=== PATIENT | female | born 1960 | race Caucasian/White ===

== ENCOUNTER 2018-08-03 23:17 | Inpatient (IN) | payer MEDICARE, OTHER ==
[2018-08-04 00:14] LABS: ADD MAN DIFF? NO
[2018-08-04 00:17] LABS: WHITE BLOOD COUNT 6.1 10^3/ul (4.8-10.8)
[2018-08-04 00:17] LABS: BASOPHIL # 0.1 10^3/ul (0.0-0.1); EOSINOPHILS # 0.2 10^3/ul (0.0-0.5); EOSINOPHILS % 2.9 % (0.0-7.0); HEMATOCRIT 42.5 % (37.0-47.0); HEMOGLOBIN 13.7 g/dl (12.0-16.0); LYMPHOCYTES # 2.3 10^3/ul (0.8-2.9); LYMPHOCYTES % 37.1 % (15.0-51.0); MEAN CORPUSCULAR HEMOGLOBIN 31.4 pg (29.0-33.0); MEAN CORPUSCULAR HGB CONC 32.2 g/dl (32.0-37.0); MEAN CORPUSCULAR VOLUME 97.3 fl (82.0-101.0); MEAN PLATELET VOLUME 11.5 fl (7.4-10.4); MONOCYTE # 0.6 10^3/ul (0.3-0.9); MONOCYTES % 9.8 % (0.0-11.0); PLATELET COUNT 219 10^3/UL (140-415); RED BLOOD COUNT 4.37 10^6/ul (4.20-5.40)
[2018-08-04 00:23] LABS: ALANINE AMINOTRANSFERASE 57 IU/L (13-69); ALBUMIN 4.6 g/dl (3.3-4.9); ALBUMIN/GLOBULIN RATIO 1.53; ALKALINE PHOSPHATASE 97 IU/L (42-121); ANION GAP 9 (5-13); ASPARTATE AMINO TRANSFERASE 40 IU/L (15-46); BILIRUBIN,INDIRECT 0.3 mg/dl (0-1.1); BILIRUBIN,TOTAL 0.3 mg/dl (0.2-1.3); BLOOD UREA NITROGEN 24 mg/dl (7-20); CALCIUM 10.2 mg/dl (8.4-10.2); CARBON DIOXIDE 30 mmol/L (21-31); CHLORIDE 103 mmol/L (97-110); CREATININE 0.59 mg/dl (0.44-1.00); Estimated GFR > 60 mL/min (>60); GLUCOSE 125 mg/dl (70-220); POTASSIUM 4.2 mmol/L (3.5-5.1); SODIUM 142 mmol/L (135-144); TOTAL PROTEIN 7.6 g/dl (6.1-8.1)
[2018-08-04 00:35] LABS: B-TYPE NATRIURETIC PEPTIDE 33 PG/ML (0-125); TROPONIN-I < 0.012 ng/ml (0.000-0.120)
[2018-08-04] MEDS: LEVETIRACETAM 1000 MG (PMX) 100 ML IVPB (02:11)
[2018-08-04] MEDS ORDERED: LORAZEPAM 2 MG INJ IV (11:30)
[2018-08-04] MEDS ORDERED: ACETAMINOPHEN 325 MG TAB PO (11:30)
[2018-08-04] MEDS ORDERED: NON-FORMULARY/PATIENT OWN MED (Mirabegron (Myrbetriq) 50 MG) PO (12:30)
[2018-08-04] MEDS: GABAPENTIN 300 MG CAP PO ×3 (13:14→20:24)
[2018-08-04] MEDS: SOLIFENACIN 5 MG TAB PO (13:14)
[2018-08-04] MEDS: FOLIC ACID 1 MG TAB PO (13:27)
[2018-08-04] MEDS ORDERED: DESMOPRESSIN 0.1 MG TAB PO (14:00)
[2018-08-04] MEDS: [UNRECOGNIZED DRUG - OTHER] XX (17:00)
[2018-08-04] MEDS: MIRABEGRON 50 MG XX (17:00)
[2018-08-04] MEDS: BACLOFEN 10 MG TAB PO (20:24)
[2018-08-04] MEDS ORDERED: PATIENT'S OWN MEDICATION PO (21:00)
[2018-08-04] MEDS ORDERED: LEVETIRACETAM 500 MG (PMX) 100 ML IVPB (21:00)
[2018-08-04] MEDS: DESMOPRESSIN 0.1 MG TAB PO (21:36)
[2018-08-05] MEDS: MIRABEGRON 50 MG XX ×2 (01:00→09:00)
[2018-08-05] MEDS: [UNRECOGNIZED DRUG - OTHER] XX ×2 (01:00→09:00)
[2018-08-05 06:43] LABS: ADD MAN DIFF? NO
[2018-08-05 07:30] LABS: ANION GAP 7 (5-13); BLOOD UREA NITROGEN 23 mg/dl (7-20); CALCIUM 9.7 mg/dl (8.4-10.2); CARBON DIOXIDE 26 mmol/L (21-31); CHLORIDE 107 mmol/L (97-110); CREATININE 0.51 mg/dl (0.44-1.00); Estimated GFR > 60 mL/min (>60); GLUCOSE 92 mg/dl (70-220); POTASSIUM 4.8 mmol/L (3.5-5.1); SODIUM 140 mmol/L (135-144)
[2018-08-05 07:51] LABS: WHITE BLOOD COUNT 6.2 10^3/ul (4.8-10.8)
[2018-08-05 07:51] LABS: BASOPHIL # 0.1 10^3/ul (0.0-0.1); EOSINOPHILS # 0.2 10^3/ul (0.0-0.5); EOSINOPHILS % 2.8 % (0.0-7.0); HEMATOCRIT 40.9 % (37.0-47.0); HEMOGLOBIN 13.4 g/dl (12.0-16.0); LYMPHOCYTES # 1.6 10^3/ul (0.8-2.9); LYMPHOCYTES % 26.5 % (15.0-51.0); MEAN CORPUSCULAR HEMOGLOBIN 31.8 pg (29.0-33.0); MEAN CORPUSCULAR HGB CONC 32.8 g/dl (32.0-37.0); MEAN CORPUSCULAR VOLUME 96.9 fl (82.0-101.0); MEAN PLATELET VOLUME 11.4 fl (7.4-10.4); MONOCYTE # 0.6 10^3/ul (0.3-0.9); MONOCYTES % 8.9 % (0.0-11.0); NEUTROPHIL # 3.8 10^3/ul (1.6-7.5); NEUTROPHILS % 60.6 % (39.0-77.0); PLATELET COUNT 200 10^3/UL (140-415); RED BLOOD COUNT 4.22 10^6/ul (4.20-5.40); RED CELL DISTRIBUTION WIDTH 12.2 % (11.5-14.5)
[2018-08-05] MEDS: SOLIFENACIN 5 MG TAB PO (09:49)
[2018-08-05] MEDS: FOLIC ACID 1 MG TAB PO (09:52)
[2018-08-05] MEDS: ASPIRIN 81 MG TAB PO (09:52)
[2018-08-05] MEDS: GABAPENTIN 300 MG CAP PO ×4 (09:52→21:22)
[2018-08-05] MEDS: BACLOFEN 10 MG TAB PO ×2 (09:52→21:14)
[2018-08-05] MEDS: ATORVASTATIN 80 MG TAB PO (21:00)
[2018-08-05] MEDS: DESMOPRESSIN 0.1 MG TAB PO (21:13)
[2018-08-05] MEDS: ASCORBIC ACID 500 MG TAB PO (21:13)
[2018-08-05] MEDS: LEVETIRACETAM 500 MG TAB PO (21:14)
[2018-08-05] MEDS: MYRBETRIQ 25 MG PO (21:15)
[2018-08-06 06:38] LABS: HDL CHOLESTEROL 52 mg/dl (37-92); LDL CHOLESTEROL,CALCULATED 98 mg/dl; TRIGLYCERIDES 54 mg/dl (0-149)
[2018-08-06 06:38] LABS: CHOLESTEROL 161 mg/dl (100-200)
[2018-08-06 07:58] LABS: ERYTHROCYTE SEDIMENTATION RATE 10 mm/Hr (0-30)
[2018-08-06] MEDS: DESMOPRESSIN 0.1 MG TAB PO (09:00)
[2018-08-06] MEDS: FOLIC ACID 1 MG TAB PO (09:28)
[2018-08-06] MEDS: BACLOFEN 10 MG TAB PO ×2 (09:28→21:43)
[2018-08-06] MEDS: ASPIRIN 81 MG TAB PO (09:28)
[2018-08-06] MEDS: SOLIFENACIN 5 MG TAB PO (09:28)
[2018-08-06] MEDS: ASCORBIC ACID 500 MG TAB PO ×2 (09:28→21:43)
[2018-08-06] MEDS: GABAPENTIN 300 MG CAP PO ×4 (09:29→21:43)
[2018-08-06] MEDS: LEVETIRACETAM 500 MG TAB PO ×2 (09:29→21:43)
[2018-08-06] MEDS: MULTIVITAMINS THERAPEUTIC TAB PO (09:29)
[2018-08-06] MEDS: DOCUSATE SODIUM 100 MG CAP PO (16:34)
[2018-08-06 17:24] LABS: RAPID PLASMA REAGIN NONREACTIVE (NR)
[2018-08-06 21:24] LABS: ADD UMIC NO; UR ASCORBIC ACID 40 mg/dL (NEGATIVE); UR BILIRUBIN (Dip) NEGATIVE (NEGATIVE); UR BLOOD (Dip) NEGATIVE (NEGATIVE); UR CLARITY CLEAR (CLEAR); UR COLOR STRAW (YELLOW); UR GLUCOSE (Dip) NEGATIVE (NEGATIVE); UR KETONES (Dip) NEGATIVE (NEGATIVE); UR LEUKOCYTE ESTERASE (Dip) NEGATIVE Leu/ul (NEGATIVE); UR NITRITE (Dip) NEGATIVE (NEGATIVE); UR SPECIFIC GRAVITY (Dip) 1.008 (1.003-1.030); UR TOTAL PROTEIN (Dip) NEGATIVE (NEGATIVE); UR UROBILINOGEN (Dip) NEGATIVE (NEGATIVE)
[2018-08-06 21:43] LABS: AMPHETAMINE/METHAMPHETAMINE Negative (NEGATIVE); BARBITURATES Negative (NEGATIVE); BENZODIAZEPINES Negative (NEGATIVE); CANNABINOIDS Negative (NEGATIVE); COCAINE Negative (NEGATIVE); OPIATES Negative (NEGATIVE)
[2018-08-06] MEDS: MYRBETRIQ 25 MG PO (21:44)
[2018-08-06] MEDS: ATORVASTATIN 80 MG TAB PO (21:47)
[2018-08-07] MEDS: SOLIFENACIN 5 MG TAB PO (09:12)
[2018-08-07] MEDS: ASCORBIC ACID 500 MG TAB PO (09:12)
[2018-08-07] MEDS: FOLIC ACID 1 MG TAB PO (09:12)
[2018-08-07] MEDS: ASPIRIN 81 MG TAB PO (09:12)
[2018-08-07] MEDS: DESMOPRESSIN 0.1 MG TAB PO (09:12)
[2018-08-07] MEDS: LEVETIRACETAM 500 MG TAB PO (09:12)
[2018-08-07] MEDS: BACLOFEN 10 MG TAB PO (09:12)
[2018-08-07] MEDS: GABAPENTIN 300 MG CAP PO ×3 (09:12→16:55)
[2018-08-07] MEDS: MULTIVITAMINS THERAPEUTIC TAB PO (09:12)
== END 2018-08-07 18:54 | DRG 101 ==
LOC: E/R 23:17 → 6WM 08-04 01:29
DX: G40.901 Epilepsy, unspecified, not intractable, with status epilepticus (principal); G81.91 Hemiplegia, unspecified affecting right dominant side; R32 Unspecified urinary incontinence; Z86.011 Personal history of benign neoplasm of the brain; Z92.3 Personal history of irradiation; Z99.3 Dependence on wheelchair
CPT/HCPCS: 36415; 70450; 70553; 71045; 80048; 80053; 80061; 80307; 81003; 82962; 83880; 84484; 85025; 85651; 86592; 93005; 93306; 95819; 97110; 97163; 97167; 97530; 99285-25

== ENCOUNTER 2018-08-07 19:07 | Inpatient (IN) | payer MEDICARE, OTHER ==
[2018-08-07] MEDS ORDERED: BISACODYL 10 MG SUPP PR (20:00)
[2018-08-07] MEDS ORDERED: ACETAMINOPHEN 325 MG TAB PO ×2 (20:00→20:47)
[2018-08-07] MEDS ORDERED: DOCUSATE SODIUM 100 MG CAP PO (20:47)
[2018-08-07] MEDS ORDERED: LORAZEPAM 2 MG INJ IV (20:47)
[2018-08-07] MEDS: SENNA TAB PO (21:00)
[2018-08-07] MEDS: LEVETIRACETAM 500 MG TAB PO (21:24)
[2018-08-07] MEDS: GABAPENTIN 300 MG CAP PO (21:24)
[2018-08-07] MEDS: BACLOFEN 10 MG TAB PO (21:24)
[2018-08-07] MEDS: ASCORBIC ACID 500 MG TAB PO (21:24)
[2018-08-07] MEDS: ATORVASTATIN 80 MG TAB PO (21:25)
[2018-08-07] MEDS: DOCUSATE SODIUM 100 MG CAP PO (21:27)
[2018-08-07] MEDS: MYRBETRIQ 25 MG PO (22:05)
[2018-08-08 02:58] LABS: ADD UMIC YES; UR ASCORBIC ACID NEGATIVE (NEGATIVE); UR BACTERIA FEW /HPF (NONE SEEN); UR BILIRUBIN (Dip) NEGATIVE (NEGATIVE); UR BLOOD (Dip) NEGATIVE (NEGATIVE); UR CLARITY CLEAR (CLEAR); UR COLOR STRAW (YELLOW); UR GLUCOSE (Dip) NEGATIVE (NEGATIVE); UR KETONES (Dip) NEGATIVE (NEGATIVE); UR LEUKOCYTE ESTERASE (Dip) TRACE Leu/ul (NEGATIVE); UR NITRITE (Dip) NEGATIVE (NEGATIVE); UR RBC 0 /HPF (0-5); UR SPECIFIC GRAVITY (Dip) 1.006 (1.003-1.030); UR TOTAL PROTEIN (Dip) NEGATIVE (NEGATIVE); UR UROBILINOGEN (Dip) NEGATIVE (NEGATIVE); UR WBC 4 /HPF (0-5)
[2018-08-08 07:19] LABS: ADD MAN DIFF? NO
[2018-08-08 07:28] LABS: BASOPHIL # 0.1 10^3/ul (0.0-0.1); BASOPHILS % 1.2 % (0.0-2.0); EOSINOPHILS # 0.2 10^3/ul (0.0-0.5); EOSINOPHILS % 4.4 % (0.0-7.0); HEMATOCRIT 43.1 % (37.0-47.0); LYMPHOCYTES # 1.7 10^3/ul (0.8-2.9); LYMPHOCYTES % 32.2 % (15.0-51.0); MEAN CORPUSCULAR HEMOGLOBIN 31.2 pg (29.0-33.0); MEAN CORPUSCULAR HGB CONC 32.5 g/dl (32.0-37.0); MEAN PLATELET VOLUME 11.7 fl (7.4-10.4); MONOCYTE # 0.4 10^3/ul (0.3-0.9); MONOCYTES % 8.4 % (0.0-11.0); NEUTROPHIL # 2.8 10^3/ul (1.6-7.5); NEUTROPHILS % 53.4 % (39.0-77.0); PLATELET COUNT 214 10^3/UL (140-415); RED BLOOD COUNT 4.49 10^6/ul (4.20-5.40); RED CELL DISTRIBUTION WIDTH 12.1 % (11.5-14.5)
[2018-08-08 07:28] LABS: WHITE BLOOD COUNT 5.2 10^3/ul (4.8-10.8)
[2018-08-08 07:45] LABS: ALANINE AMINOTRANSFERASE 48 IU/L (13-69); ALBUMIN 4.1 g/dl (3.3-4.9); ALBUMIN/GLOBULIN RATIO 1.51; ALKALINE PHOSPHATASE 79 IU/L (42-121); ANION GAP 8 (5-13); ASPARTATE AMINO TRANSFERASE 31 IU/L (15-46); BILIRUBIN,INDIRECT 0.5 mg/dl (0-1.1); BILIRUBIN,TOTAL 0.5 mg/dl (0.2-1.3); BLOOD UREA NITROGEN 19 mg/dl (7-20); CALCIUM 9.5 mg/dl (8.4-10.2); CARBON DIOXIDE 28 mmol/L (21-31); CHLORIDE 106 mmol/L (97-110); CREATININE 0.56 mg/dl (0.44-1.00); Estimated GFR > 60 mL/min (>60); GLUCOSE 93 mg/dl (70-220); SODIUM 142 mmol/L (135-144); TOTAL PROTEIN 6.8 g/dl (6.1-8.1)
[2018-08-08] MEDS: DESMOPRESSIN 0.1 MG TAB PO (10:40)
[2018-08-08] MEDS: DOCUSATE SODIUM 100 MG CAP PO ×2 (10:40→20:17)
[2018-08-08] MEDS: GABAPENTIN 300 MG CAP PO ×4 (10:40→20:17)
[2018-08-08] MEDS: FOLIC ACID 1 MG TAB PO (10:40)
[2018-08-08] MEDS: LEVETIRACETAM 500 MG TAB PO ×2 (10:40→20:17)
[2018-08-08] MEDS: ASCORBIC ACID 500 MG TAB PO ×2 (10:40→20:17)
[2018-08-08] MEDS: BACLOFEN 10 MG TAB PO ×2 (10:41→20:17)
[2018-08-08] MEDS: ASPIRIN 81 MG TAB PO (10:41)
[2018-08-08] MEDS: MULTIVITAMINS THERAPEUTIC TAB PO (10:41)
[2018-08-08] MEDS: SOLIFENACIN 5 MG TAB PO (10:50)
[2018-08-08] MEDS: MYRBETRIQ 25 MG PO (20:17)
[2018-08-08] MEDS: ATORVASTATIN 80 MG TAB PO (20:17)
[2018-08-08] MEDS: SENNA TAB PO (20:19)
[2018-08-09] MEDS: ASCORBIC ACID 500 MG TAB PO ×2 (09:06→21:49)
[2018-08-09] MEDS: DOCUSATE SODIUM 100 MG CAP PO ×2 (09:06→21:49)
[2018-08-09] MEDS: FOLIC ACID 1 MG TAB PO (09:06)
[2018-08-09] MEDS: MULTIVITAMINS THERAPEUTIC TAB PO (09:06)
[2018-08-09] MEDS: GABAPENTIN 300 MG CAP PO ×4 (09:06→21:49)
[2018-08-09] MEDS: BACLOFEN 10 MG TAB PO ×2 (09:06→21:49)
[2018-08-09] MEDS: DESMOPRESSIN 0.1 MG TAB PO (09:06)
[2018-08-09] MEDS: SOLIFENACIN 5 MG TAB PO (09:06)
[2018-08-09] MEDS: LEVETIRACETAM 500 MG TAB PO ×2 (09:06→21:49)
[2018-08-09] MEDS: ASPIRIN 81 MG TAB PO (09:06)
[2018-08-09] MEDS ORDERED: EUCERIN 113 GM CR TOP (14:30)
[2018-08-09] MEDS: SENNA TAB PO (21:00)
[2018-08-09] MEDS: ATORVASTATIN 80 MG TAB PO (21:49)
[2018-08-09] MEDS: MYRBETRIQ 25 MG PO (21:49)
[2018-08-10 07:35] LABS: ADD MAN DIFF? NO
[2018-08-10 07:43] LABS: WHITE BLOOD COUNT 5.4 10^3/ul (4.8-10.8)
[2018-08-10 07:43] LABS: BASOPHIL # 0.1 10^3/ul (0.0-0.1); BASOPHILS % 0.9 % (0.0-2.0); EOSINOPHILS # 0.2 10^3/ul (0.0-0.5); HEMATOCRIT 40.3 % (37.0-47.0); HEMOGLOBIN 12.9 g/dl (12.0-16.0); LYMPHOCYTES # 1.6 10^3/ul (0.8-2.9); LYMPHOCYTES % 29.4 % (15.0-51.0); MEAN CORPUSCULAR HEMOGLOBIN 31.2 pg (29.0-33.0); MEAN CORPUSCULAR VOLUME 97.6 fl (82.0-101.0); MEAN PLATELET VOLUME 11.4 fl (7.4-10.4); MONOCYTE # 0.5 10^3/ul (0.3-0.9); MONOCYTES % 9.5 % (0.0-11.0); NEUTROPHIL # 3.1 10^3/ul (1.6-7.5); PLATELET COUNT 191 10^3/UL (140-415); RED BLOOD COUNT 4.13 10^6/ul (4.20-5.40); RED CELL DISTRIBUTION WIDTH 12.1 % (11.5-14.5)
[2018-08-10] MEDS: EUCERIN 113 GM CR TOP (08:00)
[2018-08-10 08:16] LABS: ALBUMIN 3.8 g/dl (3.3-4.9); ANION GAP 6 (5-13); BLOOD UREA NITROGEN 16 mg/dl (7-20); CALCIUM 9.5 mg/dl (8.4-10.2); CARBON DIOXIDE 30 mmol/L (21-31); CHLORIDE 106 mmol/L (97-110); CREATININE 0.49 mg/dl (0.44-1.00); Estimated GFR > 60 mL/min (>60); GLUCOSE 95 mg/dl (70-220); POTASSIUM 4.1 mmol/L (3.5-5.1); SODIUM 142 mmol/L (135-144)
[2018-08-10] MEDS: DOCUSATE SODIUM 100 MG CAP PO ×2 (08:17→20:23)
[2018-08-10] MEDS: FOLIC ACID 1 MG TAB PO (08:17)
[2018-08-10] MEDS: ASPIRIN 81 MG TAB PO (08:17)
[2018-08-10] MEDS: LEVETIRACETAM 500 MG TAB PO ×2 (08:17→20:23)
[2018-08-10] MEDS: MULTIVITAMINS THERAPEUTIC TAB PO (08:18)
[2018-08-10] MEDS: GABAPENTIN 300 MG CAP PO ×4 (08:18→20:21)
[2018-08-10] MEDS: BACLOFEN 10 MG TAB PO ×2 (08:18→20:23)
[2018-08-10] MEDS: ASCORBIC ACID 500 MG TAB PO ×2 (08:18→20:23)
[2018-08-10] MEDS: SOLIFENACIN 5 MG TAB PO (10:52)
[2018-08-10] MEDS: ATORVASTATIN 80 MG TAB PO (20:21)
[2018-08-10] MEDS: DESMOPRESSIN 0.1 MG TAB PO (20:23)
[2018-08-10] MEDS: SENNA TAB PO (20:23)
[2018-08-10] MEDS: MYRBETRIQ 25 MG PO (20:24)
[2018-08-11] MEDS: DOCUSATE SODIUM 100 MG CAP PO ×2 (09:00→20:38)
[2018-08-11] MEDS: ASPIRIN 81 MG TAB PO (09:51)
[2018-08-11] MEDS: MULTIVITAMINS THERAPEUTIC TAB PO (09:53)
[2018-08-11] MEDS: FOLIC ACID 1 MG TAB PO (09:53)
[2018-08-11] MEDS: ASCORBIC ACID 500 MG TAB PO ×2 (09:53→20:38)
[2018-08-11] MEDS: BACLOFEN 10 MG TAB PO ×2 (09:54→20:38)
[2018-08-11] MEDS: GABAPENTIN 300 MG CAP PO ×4 (09:54→20:38)
[2018-08-11] MEDS: LEVETIRACETAM 500 MG TAB PO ×2 (09:55→20:38)
[2018-08-11] MEDS: SOLIFENACIN 5 MG TAB PO (10:00)
[2018-08-11] MEDS: MYRBETRIQ 25 MG PO (20:37)
[2018-08-11] MEDS: SENNA TAB PO (20:38)
[2018-08-11] MEDS: DESMOPRESSIN 0.1 MG TAB PO (20:38)
[2018-08-11] MEDS: ATORVASTATIN 80 MG TAB PO (20:38)
[2018-08-12] MEDS: ASCORBIC ACID 500 MG TAB PO ×2 (08:22→21:02)
[2018-08-12] MEDS: FOLIC ACID 1 MG TAB PO (08:22)
[2018-08-12] MEDS: ASPIRIN 81 MG TAB PO (08:22)
[2018-08-12] MEDS: MULTIVITAMINS THERAPEUTIC TAB PO (08:23)
[2018-08-12] MEDS: LEVETIRACETAM 500 MG TAB PO ×2 (08:23→21:02)
[2018-08-12] MEDS: SOLIFENACIN 5 MG TAB PO (08:23)
[2018-08-12] MEDS: GABAPENTIN 300 MG CAP PO ×4 (08:23→21:02)
[2018-08-12] MEDS: BACLOFEN 10 MG TAB PO ×2 (08:23→21:02)
[2018-08-12] MEDS: DOCUSATE SODIUM 100 MG CAP PO ×2 (08:23→21:02)
[2018-08-12] MEDS: SENNA TAB PO (21:00)
[2018-08-12] MEDS: DESMOPRESSIN 0.1 MG TAB PO (21:01)
[2018-08-12] MEDS: ATORVASTATIN 80 MG TAB PO (21:02)
[2018-08-12] MEDS: MYRBETRIQ 25 MG PO (21:03)
[2018-08-13] MEDS: SOLIFENACIN 5 MG TAB PO (08:11)
[2018-08-13] MEDS: LEVETIRACETAM 500 MG TAB PO ×2 (08:11→20:44)
[2018-08-13] MEDS: MULTIVITAMINS THERAPEUTIC TAB PO (08:11)
[2018-08-13] MEDS: ASCORBIC ACID 500 MG TAB PO ×2 (08:11→20:44)
[2018-08-13] MEDS: DOCUSATE SODIUM 100 MG CAP PO ×2 (08:11→20:44)
[2018-08-13] MEDS: BACLOFEN 10 MG TAB PO ×2 (08:11→20:44)
[2018-08-13] MEDS: ASPIRIN 81 MG TAB PO (08:11)
[2018-08-13] MEDS: GABAPENTIN 300 MG CAP PO ×4 (08:11→20:44)
[2018-08-13] MEDS: FOLIC ACID 1 MG TAB PO (08:11)
[2018-08-13] MEDS: DESMOPRESSIN 0.1 MG TAB PO (20:44)
[2018-08-13] MEDS: ATORVASTATIN 80 MG TAB PO (20:44)
[2018-08-13] MEDS: SENNA TAB PO (20:45)
[2018-08-13] MEDS: MYRBETRIQ 25 MG PO (20:48)
[2018-08-14] MEDS: LEVOFLOXACIN 250 MG TAB PO (07:07)
[2018-08-14] MEDS: MULTIVITAMINS THERAPEUTIC TAB PO (08:39)
[2018-08-14] MEDS: BACLOFEN 10 MG TAB PO ×2 (08:39→22:24)
[2018-08-14] MEDS: LEVETIRACETAM 500 MG TAB PO ×2 (08:39→22:24)
[2018-08-14] MEDS: SOLIFENACIN 5 MG TAB PO (08:39)
[2018-08-14] MEDS: ASPIRIN 81 MG TAB PO (08:39)
[2018-08-14] MEDS: GABAPENTIN 300 MG CAP PO ×4 (08:39→22:24)
[2018-08-14] MEDS: DOCUSATE SODIUM 100 MG CAP PO ×2 (08:39→22:24)
[2018-08-14] MEDS: FOLIC ACID 1 MG TAB PO (08:39)
[2018-08-14] MEDS: ASCORBIC ACID 500 MG TAB PO ×2 (08:39→22:24)
[2018-08-14] MEDS: DESMOPRESSIN 0.1 MG TAB PO (22:23)
[2018-08-14] MEDS: ATORVASTATIN 80 MG TAB PO (22:23)
[2018-08-14] MEDS: SENNA TAB PO (22:24)
[2018-08-14] MEDS: MYRBETRIQ 25 MG PO (22:26)
[2018-08-15] MEDS: LEVOFLOXACIN 250 MG TAB PO (06:32)
[2018-08-15] MEDS: LEVETIRACETAM 500 MG TAB PO ×2 (08:20→21:26)
[2018-08-15] MEDS: ASPIRIN 81 MG TAB PO (08:20)
[2018-08-15] MEDS: BACLOFEN 10 MG TAB PO ×2 (08:20→21:26)
[2018-08-15] MEDS: GABAPENTIN 300 MG CAP PO ×4 (08:21→21:26)
[2018-08-15] MEDS: DOCUSATE SODIUM 100 MG CAP PO ×2 (08:21→21:00)
[2018-08-15] MEDS: MULTIVITAMINS THERAPEUTIC TAB PO (08:21)
[2018-08-15] MEDS: ASCORBIC ACID 500 MG TAB PO ×2 (08:21→21:26)
[2018-08-15] MEDS: FOLIC ACID 1 MG TAB PO (08:21)
[2018-08-15] MEDS: SOLIFENACIN 5 MG TAB PO (09:13)
[2018-08-15] MEDS: LACTULOSE 30ML CUP PO (18:55)
[2018-08-15] MEDS: SENNA TAB PO (21:00)
[2018-08-15] MEDS: MYRBETRIQ 25 MG PO (21:26)
[2018-08-15] MEDS: DESMOPRESSIN 0.1 MG TAB PO (21:26)
[2018-08-15] MEDS: ATORVASTATIN 80 MG TAB PO (21:26)
[2018-08-16] MEDS: LEVOFLOXACIN 250 MG TAB PO (06:51)
[2018-08-16] MEDS: SOLIFENACIN 5 MG TAB PO (10:09)
[2018-08-16] MEDS: GABAPENTIN 300 MG CAP PO ×4 (10:09→21:41)
[2018-08-16] MEDS: BACLOFEN 10 MG TAB PO ×2 (10:10→21:41)
[2018-08-16] MEDS: DOCUSATE SODIUM 100 MG CAP PO ×2 (10:10→21:41)
[2018-08-16] MEDS: FOLIC ACID 1 MG TAB PO (10:10)
[2018-08-16] MEDS: MULTIVITAMINS THERAPEUTIC TAB PO (10:10)
[2018-08-16] MEDS: ASCORBIC ACID 500 MG TAB PO ×2 (10:10→21:41)
[2018-08-16] MEDS: ASPIRIN 81 MG TAB PO (10:10)
[2018-08-16] MEDS: LEVETIRACETAM 500 MG TAB PO ×2 (10:10→21:41)
[2018-08-16] MEDS: DESMOPRESSIN 0.1 MG TAB PO (21:41)
[2018-08-16] MEDS: ATORVASTATIN 80 MG TAB PO (21:41)
[2018-08-16] MEDS: MYRBETRIQ 25 MG PO (21:41)
[2018-08-16] MEDS: SENNA TAB PO (21:41)
[2018-08-17] MEDS: LEVOFLOXACIN 250 MG TAB PO (06:53)
[2018-08-17] MEDS: SOLIFENACIN 5 MG TAB PO (09:11)
[2018-08-17] MEDS: BACLOFEN 10 MG TAB PO ×2 (09:11→20:56)
[2018-08-17] MEDS: DOCUSATE SODIUM 100 MG CAP PO ×2 (09:12→20:56)
[2018-08-17] MEDS: LEVETIRACETAM 500 MG TAB PO ×2 (09:12→20:56)
[2018-08-17] MEDS: GABAPENTIN 300 MG CAP PO ×4 (09:12→20:56)
[2018-08-17] MEDS: ASPIRIN 81 MG TAB PO (09:12)
[2018-08-17] MEDS: MULTIVITAMINS THERAPEUTIC TAB PO (09:12)
[2018-08-17] MEDS: ASCORBIC ACID 500 MG TAB PO ×2 (09:12→20:56)
[2018-08-17] MEDS: FOLIC ACID 1 MG TAB PO (09:12)
[2018-08-17] MEDS: DESMOPRESSIN 0.1 MG TAB PO (20:56)
[2018-08-17] MEDS: ATORVASTATIN 80 MG TAB PO (20:56)
[2018-08-17] MEDS: MYRBETRIQ 25 MG PO (20:57)
[2018-08-17] MEDS: SENNA TAB PO (20:57)
[2018-08-18] MEDS: LEVOFLOXACIN 250 MG TAB PO (06:44)
[2018-08-18] MEDS: SOLIFENACIN 5 MG TAB PO (09:12)
[2018-08-18] MEDS: LEVETIRACETAM 500 MG TAB PO ×2 (09:13→21:03)
[2018-08-18] MEDS: DOCUSATE SODIUM 100 MG CAP PO ×2 (09:13→21:03)
[2018-08-18] MEDS: ASPIRIN 81 MG TAB PO (09:13)
[2018-08-18] MEDS: GABAPENTIN 300 MG CAP PO ×4 (09:13→21:03)
[2018-08-18] MEDS: FOLIC ACID 1 MG TAB PO (09:14)
[2018-08-18] MEDS: MULTIVITAMINS THERAPEUTIC TAB PO (09:14)
[2018-08-18] MEDS: ASCORBIC ACID 500 MG TAB PO ×2 (09:14→21:02)
[2018-08-18] MEDS: BACLOFEN 10 MG TAB PO ×2 (09:14→21:03)
[2018-08-18] MEDS: SENNA TAB PO (21:00)
[2018-08-18] MEDS: MYRBETRIQ 25 MG PO (21:02)
[2018-08-18] MEDS: ATORVASTATIN 80 MG TAB PO (21:03)
[2018-08-18] MEDS: DESMOPRESSIN 0.1 MG TAB PO (21:03)
[2018-08-19] MEDS: LEVOFLOXACIN 250 MG TAB PO (06:29)
[2018-08-19] MEDS: ASCORBIC ACID 500 MG TAB PO ×2 (10:35→21:15)
[2018-08-19] MEDS: SOLIFENACIN 5 MG TAB PO (10:35)
[2018-08-19] MEDS: LEVETIRACETAM 500 MG TAB PO ×2 (10:35→21:15)
[2018-08-19] MEDS: BACLOFEN 10 MG TAB PO ×2 (10:35→21:15)
[2018-08-19] MEDS: DOCUSATE SODIUM 100 MG CAP PO ×2 (10:35→21:15)
[2018-08-19] MEDS: MULTIVITAMINS THERAPEUTIC TAB PO (10:35)
[2018-08-19] MEDS: FOLIC ACID 1 MG TAB PO (10:36)
[2018-08-19] MEDS: ASPIRIN 81 MG TAB PO (10:36)
[2018-08-19] MEDS: GABAPENTIN 300 MG CAP PO ×4 (10:36→21:23)
[2018-08-19] MEDS: ATORVASTATIN 80 MG TAB PO (21:15)
[2018-08-19] MEDS: DESMOPRESSIN 0.1 MG TAB PO (21:15)
[2018-08-19] MEDS: SENNA TAB PO (21:15)
[2018-08-19] MEDS: MYRBETRIQ 25 MG PO (21:16)
[2018-08-20] MEDS: LEVOFLOXACIN 250 MG TAB PO (06:49)
[2018-08-20] MEDS: SOLIFENACIN 5 MG TAB PO (09:27)
[2018-08-20] MEDS: FOLIC ACID 1 MG TAB PO (09:27)
[2018-08-20] MEDS: DOCUSATE SODIUM 100 MG CAP PO (09:27)
[2018-08-20] MEDS: GABAPENTIN 300 MG CAP PO ×2 (09:28→12:16)
[2018-08-20] MEDS: LEVETIRACETAM 500 MG TAB PO (09:28)
[2018-08-20] MEDS: BACLOFEN 10 MG TAB PO (09:28)
[2018-08-20] MEDS: ASCORBIC ACID 500 MG TAB PO (09:28)
[2018-08-20] MEDS: MULTIVITAMINS THERAPEUTIC TAB PO (09:28)
[2018-08-20] MEDS: ASPIRIN 81 MG TAB PO (09:28)
== END 2018-08-20 12:48 | disposition home health service (06) | DRG 57 ==
LOC: VRC 19:30
DX: I69.351 Hemiplegia and hemiparesis following cerebral infarction affecting right dominant side (principal); E46 Unspecified protein-calorie malnutrition; Z68.1 Body mass index [BMI] 19.9 or less, adult; N39.0 Urinary tract infection, site not specified; I69.320 Aphasia following cerebral infarction; Z85.841 Personal history of malignant neoplasm of brain; G93.9 Disorder of brain, unspecified; G40.909 Epilepsy, unspecified, not intractable, without status epilepticus; N31.9 Neuromuscular dysfunction of bladder, unspecified; B96.20 Unspecified Escherichia coli [E. coli] as the cause of diseases classified elsewhere; Z74.09 Other reduced mobility; F06.31 Mood disorder due to known physiological condition with depressive features
CPT/HCPCS: 80048; 80053; 81001; 82040; 85025; 87081; 87086; 92507; 92523; 97110; 97112; 97163; 97167; 97530; 97535; 97542